=== PATIENT | male | born 1950 | race Caucasian/White ===

== ENCOUNTER 2021-07-20 05:27 | Observation (INO) | payer MEDICARE, BC ==
[~2021-07-20 05:27] MED LIST: ALLOPURINOL300 MG PO; ATORVASTATIN CA10 MG PO; GLIPIZIDE5 MG PO; NAPROXEN250 MG PO; NEURONTIN100 MG PO; NEXIUM40 MG PO
[2021-07-20] MEDS ORDERED: DEXAMETHASONE SOD PHOS 10 MG/1 ML VIAL ONE (06:33)
[2021-07-20] MEDS ORDERED: CELECOXIB 200 MG CAP ONE (06:33)
[2021-07-20] MEDS ORDERED: GABAPENTIN 300 MG CAP ONE (06:34)
[2021-07-20 06:40] LABS: BASOPHILS % 0.4 % (0.0-1.0); EOSINOPHILS # (AUTO) 0.4 (0.0-0.4); EOSINOPHILS % 3.6 % (0.0-6.0); HEMATOCRIT 46.6 % (38.2-49.6); HEMOGLOBIN 15.5 g/dL (14.0-18.0); LYMPHOCYTES # (AUTO) 2.7 (1.0-3.2); MEAN CORPUSCULAR HEMOGLOBIN 28.1 pg (28-32); MEAN CORPUSCULAR HGB CONC 33.3 g/dL (31-35); MEAN CORPUSCULAR VOLUME 84.4 fL (81-99); MONOCYTES # (AUTO) 0.7 (0.2-0.8); NEUTROPHILS # (AUTO) 7.3 (2.1-6.9); NEUTROPHILS % 65.6 % (38.7-80.0); PLATELET COUNT 235 x10e3/uL (140-360); RED BLOOD COUNT 5.52 x10e6/uL (4.3-5.7); RED CELL DISTRIBUTION WIDTH 13.2 % (11.7-14.4)
[2021-07-20] MEDS ORDERED: SODIUM CHLORIDE 0.9% 500ML 500 ML ONE (06:53)
[2021-07-20] MEDS ORDERED: TRANEXAMIC ACID 1,000 MG/10 ML ML ONE (06:53)
[2021-07-20] MEDS ORDERED: Vancomycin IV 1,000 MG ONE (06:53)
[2021-07-20 07:29] LABS: ALBUMIN 3.7 g/dL (3.5-5.0); ALBUMIN/GLOBULIN RATIO 1.1 (0.8-2.0); ANION GAP 13.9 mmol/L (8-16); CALCIUM 9.3 mg/dL (8.4-10.2); CREATININE, SERUM 1.27 mg/dL (0.72-1.25); POTASSIUM 3.9 mmol/L (3.5-5.1)
[2021-07-20] MEDS ORDERED: ROPIVACAINE 246.25 MG, EPINEPHRINE HCL 1:1000 1ML 0.5 MG, CLONIDINE HCL 0.08 MG, KETORO... INJ ONE ×5 (07:30)
[2021-07-20] MEDS ORDERED: DIPHENHYDRAMINE HCL INJ 50 MG/ML VIAL IV PRN (10:15)
[2021-07-20] MEDS ORDERED: ACETAMINOPHEN 650 MG SUPP PR PRN (10:15)
[2021-07-20] MEDS ORDERED: KETOROLAC TROMETHAMINE 30 MG/ML VIAL IV PRN (10:15)
[2021-07-20] MEDS ORDERED: HYDROCODONE/APAP 5MG-325MG TAB PO PRN (10:15)
[2021-07-20] MEDS ORDERED: DOCUSATE SODIUM 100 MG CAP PO PRN (10:15)
[2021-07-20] MEDS ORDERED: SODIUM CHLORIDE 0.9% 1000ML 1,000 ML IV SCH (10:15)
[2021-07-20] MEDS ORDERED: ONDANSETRON HCL INJ 2MG/ML 2ML 2 MG/ML VIAL IV PRN (10:15)
[2021-07-20] MEDS ORDERED: HYDROCODONE/APAP 7.5MG-325MG 1 EA TAB PO PRN (10:15)
[2021-07-20] MEDS ORDERED: MEPERIDINE HCL INJ 25 MG/ML VIAL ONE (10:36)
[2021-07-20] MEDS ORDERED: HYDROMORPHONE 1MG/1ML INJ ONE (11:13)
[2021-07-20] MEDS ORDERED: HYDROCODONE/APAP 5MG-325MG TAB ONE (12:10)
[2021-07-20 14:45] VITALS: BP 123/67
[2021-07-20 16:12] VITALS: BP 123/67
[2021-07-20] MEDS ORDERED: ASPIRIN 325 MG TAB PO SCH (17:00)
[2021-07-20] MEDS ORDERED: Cefazolin 1 GM in SODIUM CHLORIDE 0.9% 50ML 50 ML IV SCH (17:00)
[2021-07-20] MEDS ORDERED: CELECOXIB 100 MG CAP PO SCH (17:00)
[2021-07-20] MEDS ORDERED: ACETAMINOPHEN 1000 MG/100 ML IV PRN (18:00)
[2021-07-20] MEDS ORDERED: ZOLPIDEM TARTRATE 5 MG TAB PO PRN (21:00)
== END 2021-07-20 18:21 | disposition home or self-care (01) ==
LOC: OR 05:27 → PACU V 10:06 → MED/SURG 14:50
PROVIDERS: ADMIT Specialist; ATTEND Specialist
DX: M17.11 Unilateral primary osteoarthritis, right knee (principal); M10.9 Gout, unspecified; E78.00 Pure hypercholesterolemia, unspecified; E78.5 Hyperlipidemia, unspecified; Z01.818 Encounter for other preprocedural examination; Z20.822 Contact with and (suspected) exposure to COVID-19
CPT/HCPCS: 27447; 36415; 71046; 73560; 80053; 82948; 85025; 86850; 86900; 86920; 93005; 97110; 97116; 97162; C1713 ×2; C1776 ×3; G0378; J0171; J0690; J1100; J1170; J1885; J2175; J2795; J3370; J7040; U0002